=== PATIENT | female | born 1985 | race Caucasian/White ===

== ENCOUNTER → 2017-08-01 15:57 | Outpatient (CLI) | payer OTHER, SELFPAY ==
[2017-08-04 10:25] LABS: HCG BETA-SUBUNIT QUANT. < 1 mIU/mL (.)
[2017-08-04 10:27] LABS: EBV Early Antigen IgG <9.0 U/mL (0.0-8.9)
== END ==
PROVIDERS: Visit Provider Obstetrics & Gynecology
DX: R53.83 Other fatigue (principal); R11.0 Nausea
CPT/HCPCS: 36415; 84702; 86663; 86665

== ENCOUNTER 2017-08-09 17:46 | Emergency (ER) | payer OTHER, SELFPAY ==
[2017-08-09 17:48] VITALS: BP 102/63; PULSE 85; RESP 16; TEMP 37.2; O2SAT 98; BMI 27.5
--- NOTE | 2017-08-09 19:08 | CT_ITS ---
STUDY: CT ABDOMEN AND PELVIS WITH CONTRAST REASON FOR EXAM: Female, 31 years old. Groin and vaginal pain RADIATION DOSAGE (If Supplied By Facility): CTDIvol = ( 11.29 ) mGy, DLP = ( 650.96 ) mGycm TECHNIQUE: Transaxial images were obtained from the dome of the diaphragm to the symphysis pubis without oral contrast. 100 ml of Isovue 300 contrast was administered. Sagittal and coronal images were reconstructed. Individualized dose optimization techniques were used for this CT. COMPARISON: None. FINDINGS: The visualized lung bases are unremarkable. The visualized portions of the heart are within normal limits. Normal liver. Normal gallbladder and extrahepatic biliary system. Normal spleen. Normal pancreas. Normal bilateral adrenal glands. Normal right kidney. Normal left kidney. Normal visualized stomach. Normal small intestine. Normal colon. The appendix is visualized and appears normal. Normal abdominal aorta. Normal inferior vena cava. Normal retroperitoneum. Normal urinary bladder. Within the lower uterine segment/cervical region there is a ill-defined low-attenuation rounded focus. The uterus appears somewhat heterogenous. There is free fluid within the pelvis. Normal abdominal wall. Normal osseous structures. CT/Abdomen/Pelvis W IV Cont ONLY IMPRESSION: Ill-defined low-attenuation focus within the lower uterine segment/cervical region, cannot exclude an underlying neoplastic process. Recommend a pelvic ultrasound or MRI for further characterization. Electronically Signed: Mirella Houser MD at 20:52 EDT Tel , Service support ,
[2017-08-09 19:26] LABS: Color, Urine Yellow (Yellow); Glucose, Dipstick Normal (Normal); Ketone-Dipstick Negative (Negative); Leukocyte Esterase-Dipstick Negative /ul (Negative); Mucous, Urine 0 SEEN /hpf (<or=2+); Nitrite-Dipstick Negative (Negative); Occult Blood-Urine Negative /ul (Negative); Protein-Dipstick Negative (Negative); Red Blood Cells-Urine 0 SEEN /hpf (0-5); Urine Bilirubin Dipstick Negative (Negative); Urine Clarity Clear (Clear); Urine Urobilinogen Normal (Normal); White Blood Cells 0 SEEN /hpf (0-5)
[2017-08-09 19:29] LABS: Internal QC Validated? YES +Cl - CLEAR BKGD; Pregnancy, Urine Negative Negative
[2017-08-09 19:37] LABS: Absolute Lymphocyte Count 2.21 X10^3/ul (0.83-4.51); Absolute Neutrophil Count 4.9 X10^3/uL (2.0-7.7); Basophil# 0.03 X10^3/uL; Basophil% 0.4 % (0-1); Eosinophil# 0.19 X10^3/uL; Eosinophils% 2.4 % (0-5); Hematocrit 40.9 % (37-47); Hemoglobin 14.2 g/dl (12.0-15.0); Lymphocyte # 2.21 X10^3/ul (4.0); Lymphocyte % 28.1 % (19-41); Mean Corp Hgb Conc 34.7 g/gl (32-36); Mean Corpuscular Hgb 31.8 pg (27.0-32.0); Mean Corpuscular Volume 91.7 fL (81-99); Mean Platelet Vol. 10.6 fl (6.2-12.0); Monocyte# 0.55 X10^3/uL; Neutrophil # 4.87 X10^3/uL (2.7-7.7); Platelet Count 256 K/mm3 (150-450); RBC Distribution Width CV 13.1 % (11.6-14.6); RBC Distribution Width SD 43.4 fl (35.1-43.9); Red Blood Count 4.46 M/mm3 (4.2-5.4); White Blood Count 7.9 K/mm3 (4.4-11.0)
[2017-08-09 19:55] LABS: POSITIVE COUNT NO; POSITIVE DIFFERENTIAL NO; POSITIVE MORPHOLOGY NO
[2017-08-09 20:00] LABS: Bacteria RARE /hpf (None Seen); Squamous Epithelial Cells - UA 0-5 SEEN /hpf (5-10)
[2017-08-09 20:08] LABS: ALB/GLOB Ratio 1.2 RATIO (0.9-2.4); AST(SGOT) 14 U/L (15-37); Alanine Aminotransfer ALT/SGPT 35 U/L (13-56); Albumin, Serum 3.7 g/dL (3.2-5.0); Alkaline Phosphatase 59 U/L (45-117); Anion Gap 4 (5-15); BUN 5 mg/dL (7-18); BUN/Creat Ratio 7.7 RATIO (10-20); Calcium,Total 8.5 mg/dL (8.5-10.1); Chloride 109 mmol/L (98-107); Creatinine, Serum 0.65 mg/dL (0.55-1.02); EST Glomerular Filtration Rate 111 mL/min (>60); Est Glom Filt Rate - Afr Amer 135 mL/min (>60); Globulin 3.2 g/dL (2.2-4.2); Glucose 79 mg/dL (74-106); Lipase 79 U/L (73-393); Potassium 3.3 mmol/L (3.5-5.1); Protein, Total 6.9 g/dL (6.4-8.2); Sodium Level 142 mmol/L (136-145)
--- NOTE | 2017-08-09 20:36 | ED.DCSUM_ITS ---
- ER Visit Summary Date of Service: 08/09/17 Chief Complaint: Abdominal and pelvic pain History of Present Illness: The patient is a 31 F who states for the past 2 months she has had a abdominal pain that starts at her rib cage anteriorly and goes all the way down to her pelvis. She states now she has developed a burning sensation in the right and left inguinal region. She states that originally the abdominal pain was sharp and stabbing but worsened today. She saw an SCUBA DIVING TEACHER last week because she thought she might be but they are testing was negative. She thought she might be because she got nausea with caffeine and with tobacco use. She states that she had a Pap smear the results are not back. She thought perhaps she had pulled a muscle because 3 weeks ago she had a very sharp pain that lasted 15 minutes but has not had any of those symptoms since. She notes some weight gain. Her doctor practices out of town. Physical Examination: Afebrile vital signs are stable Gen: Well-nourished well-developed Head: Normocephalic atraumatic Eyes: Perrl EOMI ENT: TMs clear no rhinorrhea moist mucous membranes Neck: Supple no lymphadenopathy no JVD nontender CVS: Regular rate rhythm no murmurs normal S1-S2 Respiratory: No distress clear to auscultation bilaterally chest nontender Abdomen: Soft reports tenderness to palpation without guarding or rebound diffusely nondistended normal bowel sounds no masses Back: Nontender Extremity: Nontender no edema Skin: Normal color no rash Neuro: alert orientated ?3 CN II-XII intact normal strength sensation reflexes patient is observed ambulating down the hallway and walks normally cerebellar Psych: Normal affect normal mood Test Results: CBC CMP urine and test negative. CT of the abdomen pelvis showed a prominence lower uterine segment and possible fluid. A ultrasound was recommended and this was obtained. Please see details from radiology. Emergency Department Course and Treatment: Patient will be referred back to her apartment assistant manager for review of the ultrasound. As far as the diffuse abdominal pain for 2 months I do not have a clear etiology for it but I do not see any emergent cause for it. Patient has upcoming follow-up appointment with her family doctor. Impression: 1. Abdominal pain 2. Pelvic pain This note was generated with Xfire dictation software. It may contain incorrect words, spelling, and punctuation that were not noted in review of the chart prior to signing ED Disposition - Plan for ED Patient: Disposition: Home or Assisted Living Chief Complaint: Female C/O Instructions: ED Abdominal Pain Unkn Cause, ED Pelvic Pain [facility] Referrals: Yanelis Mckinney MD [STAFF PHYSICIAN] - (call on saturday to arrange follow up)
--- NOTE | 2017-08-09 21:03 | US_ITS ---
STUDY: ULTRASOUND TRANSVAGINAL CLINICAL: Female, [address] Pelvic pain. TECHNIQUE: Transvaginal COMPARISON: CT dated August 09, 2017 FINDINGS: Normal uterine size measuring 7.0 cm in maximal craniocaudal dimension. There are no myometrial masses. Normal endometrial thickness measuring 8 mm. There are no endometrial masses, and there is no fluid in the endometrial cavity. There is fluid within the cervix. There appears to be soft tissue prominence of the cervix. Normal right ovary, measuring 3.5 x 2.4 x 1.9 cm. There are multiple follicles without a dominant cyst. Normal left ovary, measuring 3.4 x 2.5 x 2.0 cm. There are multiple follicles without a dominant cyst. There is mild free fluid in the pelvis. Polycystic ovary disease: No. US/Transvaginal Non- IMPRESSION: Fluid within the cervix with apparent soft tissue prominence of the cervix. No discrete mass identified. Electronically Signed: Mirella Houser MD at 22:17 EDT Tel , Service support ,
[2017-08-09 23:52] VITALS: RESP 16
== END 2017-08-09 23:53 | disposition home or self-care (01) ==
PROVIDERS: Emergency Provider Emergency Medicine; Family Provider Family Medicine; PCP Family Medicine
DX: R10.84 Generalized abdominal pain (principal); R10.2 Pelvic and perineal pain; R11.0 Nausea; Z72.0 Tobacco use
CPT/HCPCS: 74177; 76830; 80053; 81001; 81025; 83690; 85025; 93976; 99284; Q9967; A4216

== ENCOUNTER → 2017-09-30 12:12 | Outpatient (CLI) | payer OTHER, SELFPAY | LOC: OPUS 12:12 | PROVIDERS: Family Provider Family Medicine; PCP Family Medicine; Visit Provider Obstetrics & Gynecology | DX: Z34.81 Encounter for supervision of other normal pregnancy, first trimester (principal); Z32.01 Encounter for pregnancy test, result positive | CPT/HCPCS: 76817 ==

== ENCOUNTER → 2017-10-28 12:09 | Outpatient (CLI) | payer OTHER, SELFPAY ==
[2017-09-19 15:46] LABS: Hematocrit 39.8 % (37-47); Hemoglobin 13.6 g/dl (12.0-15.0); Mean Corp Hgb Conc 34.2 g/gl (32-36); Mean Corpuscular Volume 90.7 fL (81-99); Mean Platelet Vol. 10.4 fl (6.2-12.0); Platelet Count 248 K/mm3 (150-450); RBC Distribution Width CV 12.9 % (11.6-14.6); RBC Distribution Width SD 42.3 fl (35.1-43.9); Red Blood Count 4.39 M/mm3 (4.2-5.4); White Blood Count 9.8 K/mm3 (4.4-11.0)
[2017-09-19 15:48] LABS: International Normalized Ratio 1.1
[2017-09-19 15:49] LABS: Partial Thromboplast Time 30.3 Seconds (24.1-36.2); Scan Indicated on CBC? Y/N NO
[2017-09-26 08:44] VITALS: BP 110/69; PULSE 93; RESP 16; TEMP 37.2; O2SAT 99; BMI 27.6
[2017-09-26 08:58] LABS: Internal QC Validated? YES +Cl - CLEAR BKGD
[2017-09-26 08:59] LABS: Pregnancy, Urine Positive Negative
[2017-09-27 11:36] LABS: HCG BETA-SUBUNIT QUANT. 31653 mIU/mL (.)
== END ==
LOC: SDC 12:10
PROVIDERS: Anesthesiology; Family Provider Family Medicine; PCP Family Medicine; Visit Provider Obstetrics & Gynecology
PROC: 0UDB8ZZ Extraction of Endometrium, Via Natural or Artificial Opening Endoscopic (ICD-10-PCS; CPT 58558; principal; 2017-09-26 09:30)
PROC: (CPT 49320; 2017-09-26 09:30)
DX: Z01.818 Encounter for other preprocedural examination (principal)
CPT/HCPCS: 36415; 81025; 84702; 85027; 85610; 85730; 86850; 86900; J7120; J2405

== ENCOUNTER 2018-07-08 23:45 | Emergency (ER) | payer OTHER, SELFPAY ==
[2018-07-08 23:45] VITALS: BP 126/77; PULSE 105; RESP 20; TEMP 36; O2SAT 100; BMI 27.1
--- NOTE | 2018-07-09 00:12 | ED.DCSUM_ITS ---
History of Present Illness Chief Complaint: Laceration Informant: Patient Occurred: Today - JPTA Mechanism/Context: Incised - accidentally Context: Sudden Onset Timing: Continuous Quality of Pain: - - sore Location: left forearm Current Severity: Mild Maximum Severity: Moderate Worsened by: palpation Relieved by: leaving it alone Associated Symptoms: Negative for: Parasthesia, Weakness, Loss of Funtion Narrative: Patient states this is not a self-inflicted wound, it was an accident as she was gathering some knives to put them away. Somehow one cut her in the left forearm. She states she is under a tremendous amount of stress involving work, finances, boyfriend, and taking care of her dad, but states she is not suicidal. Tetanus Immunization: >10 years Past Medical History - Allergies and Home Meds Allergies/Adverse Reactions: Allergies No Known Allergies Allergy (Verified 08/09/17 17:50) Primary Care Physician: Yun Gayle NP-C [Primary Care Provider] - Past Medical History: None Smoking Status: Current every day smoker Review of Systems Musculoskeletal: Reports: Extremity Pain Skin: Reports: Wounds. Denies: Abscess Neurological: Denies: Weakness, Parasthesia, Numbness Psych: Denies: Depression, Suicidal thoughts, Suicidal ideations Physical Exam Vital Signs/Narrative: Vital Signs Temp Pulse Resp BP Pulse Ox 07/08/18 23:45 96.8 F L 105 H 20 H 126/77 H 100 Inital Vital Signs reviewed: Yes Left Forearm: - - 5 cm laceration into subcutaneous fat without any major bleeding, tendon, blood vessel, nerve, or bone exposure. Negative for: Limited ROM - Full range of motion throughout the wrist and fingers left upper extremity, median, ulnar, radial nerve function all intact. General: Well nourished, Well developed Head: Normocephalic, Atraumatic Skin: Trauma - Laceration. See above. Left forearm. No other injuries. Neurological: Alert, Oriented x3, Cranial nerves II-XII grossly intact, Normal Strength, Normal Sensation, Normal Gait Psychological: Normal affect Diagnostic/Tx/Re-eval - Medical Decision Making Tetanus was updated with an Adacel. Advised with regards to suture removal in approximately 10-14 days. Procedures - Lacerations left forearm Length: 5 cm Depth: Sub Q Shape: Linear Prep: Sterile Conditions, Chlorhexadine Laceration Repair: Lidocaine - 1% plain, 8cc Irrigated (ml): 100 Number of Sutures/Anay: 5 Suture Information: Ethilon, Horizontal, Mattress, 4-0 Comment: tolerated well. no complications. ED Disposition - Plan for ED Patient: Disposition: Home or Assisted Living Diagnosis: Laceration of left forearm without complication Instructions: ED Laceration Ext Sutr Stap Tape Referrals: Yun Gayle STUDENT SUCCESS ADVISOR-C [Primary Care Provider] - 10-14 Days suture removal
[2018-07-09] MEDS: Diphth,Pertuss(Acell),Tet Vac 0.5 ML Vial IM (00:26)
== END 2018-07-09 01:01 | disposition home or self-care (01) ==
PROVIDERS: Emergency Provider Emergency Medicine; Family Provider Nurse Practitioner Family; PCP Nurse Practitioner Family
DX: S51.812A Laceration without foreign body of left forearm, initial encounter (principal); W26.0XXA Contact with knife, initial encounter; Y93.9 Activity, unspecified; Y92.9 Unspecified place or not applicable; Y99.9 Unspecified external cause status; Z23 Encounter for immunization; F17.200 Nicotine dependence, unspecified, uncomplicated
CPT/HCPCS: 12002; 90715; 99284

== ENCOUNTER 2018-07-17 20:28 | Emergency (ER) | payer OTHER, SELFPAY ==
[2018-07-17 20:28] VITALS: BP 114/72; PULSE 99; RESP 16; TEMP 36.2; O2SAT 99; BMI 26.5
[2018-07-17 20:44] LABS: Mucous, Urine 0 SEEN /hpf (<or=2+)
[2018-07-17 20:49] LABS: Color, Urine Amber (Yellow); Glucose, Dipstick Normal (Normal); Ketone-Dipstick 5 mg/dl (Negative); Leukocyte Esterase-Dipstick 500 /ul (Negative); Nitrite-Dipstick Positive (Negative); Occult Blood-Urine 250 /ul (Negative); Protein-Dipstick 100 mg/dl (Negative); Urine Bilirubin Dipstick 1 mg/dL (Negative); Urine Clarity Cloudy (Clear); Urine Urobilinogen 4 mg/dl (Normal); Urine pH 6.5 (5.0 - 8.0)
[2018-07-17 20:58] LABS: Red Blood Cells-Urine > 100 SEEN /hpf (0-5); Squamous Epithelial Cells - UA 5-10 SEEN /hpf (5-10); White Blood Cells >100 SEEN /hpf (0-5)
[2018-07-17 20:59] LABS: Bacteria 3+ /hpf (None Seen)
--- NOTE | 2018-07-17 21:32 | ED.VIS.GEN ---
History of Present Illness Chief Complaint: Complaint Informant: Patient Onset: Today Context: Sudden Onset Timing: Continuous - 1 hour prior to presentation. Burning with urgency and frequency Quality: Burning Location: Current Severity: Mild Maximum Severity: Moderate Worsened by: Urinary Relieved by: Not applicable Associated Symptoms: No associated symptoms Narrative: Patient is a 32-year-old woman whose last normal menstrual period was 10 days ago who presents with dysuria, frequency, urgency that started 1 hour prior to presentation. She denies fever or chills. She does, nausea without vomiting. She denies vaginal symptoms. She denies anabolic allergies. Prior similar symptoms: No Recent Illness/Hospitalization: No - Past Medical History (1) No significant past medical history Status: Acute Past Medical History - Allergies and Home Meds Allergies/Adverse Reactions: Allergies No Known Allergies Allergy (Verified 07/17/18 20:30) Primary Care Physician: Yun Gayle NP-C [Primary Care Provider] - Prior records reviewed: No Past Medical History: None Surgical History: no surgical history Lives: Spouse/ Significant Other Smoking Status: Current every day smoker Alcohol: Rare Review of Systems General: Denies: Chills, Fever, Malaise, Subjective, Sweats Gastrointestinal: Reports: Abdominal pain, Nausea. Denies: Vomiting, Diarrhea, Constipation, Melena, Hematochezia Genitourinary: Reports: Dysuria, Frequency. Denies: Hematuria Musculoskeletal: Reports: Back pain - Central low back. Denies: Myalgias, Arthralgias, Neck pain, Swelling, Extremity Pain Skin: Denies: Rash Allergy: Denies: Uticaria, Swelling of the mouth Physical Exam Vital Signs/Narrative: Vital Signs Temp Pulse Resp BP Pulse Ox 07/17/18 20:28 97.2 F L 99 16 114/72 99 Inital Vital Signs reviewed: Yes General: Well nourished, Well developed, No Acute Distress Head: Normocephalic, Atraumatic Eyes: Perrl, EOMI. Negative for: Pale conjunctiva, Scleral icterus, - ENT: Moist mucous membranes, No rhinorrhea Neck: Supple, Nontender Cardiovascular: Regular rate, Regular rhythm, No murmurs Respiratory: No distress Abdomen: Soft, Nondistended, Normal bowel sounds, No masses, Tender - Tenderness suprapubic. Negative for: Guarding, Rebound tenderness Rectal: Deferred Back: Nontender, Normal Inspection. Negative for: CVA tenderness Skin: Normal color, No rash Neurological: Alert, Oriented x3, Cranial nerves II-XII grossly intact, Normal Strength, Normal Sensation Psychological: Normal affect, Normal Mood Diagnostic/Tx/Re-eval - Medical Decision Making Symptoms consistent with cystitis. Pyelonephritis. Doubt gynecologic etiology. ED Disposition - Plan for ED Patient: Disposition: Home or Assisted Living Diagnosis: Acute cystitis Instructions: ED UTI Cystitis Female Prescriptions: Nitrofurantoin Macrocrystals [Macrobid] 100 mg PO Q12 #10 capsule Phenazopyridine HCl [Pyridium] 200 mg PO TID #10 tablet Referrals: Yun Gayle NP-C [Primary Care Provider] - 3-5 Days Additional Instructions: Your prescription was electronically transmitted to [facility] [place]
[2018-07-17] MEDS: Nitrofurantoin Macrocrystals 100 MG Capsule PO (21:55)
[2018-07-17] MEDS: Phenazopyridine 95 MG Tablet 190 MG PO (21:55)
[2018-07-17 21:57] VITALS: RESP 16
== END 2018-07-17 21:59 | disposition home or self-care (01) ==
PROVIDERS: Emergency Provider Emergency Medicine; Family Provider Nurse Practitioner Family; PCP Nurse Practitioner Family
DX: N30.00 Acute cystitis without hematuria (principal); F17.200 Nicotine dependence, unspecified, uncomplicated; Z79.899 Other long term (current) drug therapy
CPT/HCPCS: 81001; 87077; 87086; 87088; 87186; 99283

== ENCOUNTER 2019-01-04 09:21 | Emergency (ER) | payer MEDICAID, SELFPAY ==
[2019-01-04 09:22] VITALS: BP 127/71; PULSE 117; RESP 16; TEMP 37; O2SAT 100; BMI 28.6
--- NOTE | 2019-01-04 09:45 | ED.DCSUM_ITS ---
History of Present Illness Chief Complaint: Complaint Detail of Chief Complaint: Rash and infection in the perineal region Informant: Patient Onset: Weeks Current Severity: Moderate Maximum Severity: Moderate Narrative: Patient presents with what she believes is an allergic reaction that is turned into an infection. Approximately 1 week ago she stated she started breaking out in her perineal region. She had recently shaved and started using a new detergent. She states she started using some Neosporin to the area. This was helping for a while but now seems to be worsened again. She states that she did have a few lumps that had drained some bloody fluid. She has not noted fever. She is not had vaginal discharge or dysuria. - Past Medical History (1) Asthma Status: Chronic (2) GERD (gastroesophageal reflux disease) Status: Chronic Past Medical History - Allergies and Home Meds Allergies/Adverse Reactions: Allergies No Known Allergies Allergy (Verified 01/04/19 09:24) Primary Care Physician: Jackie Obregon [STAFF PHYSICIAN] - 1 Week if not improving Surgical History: no surgical history Smoking Status: Current every day smoker Review of Systems General: Denies: Chills, Fever Eyes: Denies: Visual changes - bilaterally ENT: Denies: Bilateral ear pain Cardiovascular: Denies: Chest pain Respiratory: Denies: Dyspnea, Cough Gastrointestinal: Denies: Abdominal pain, Nausea, Vomiting, Diarrhea Genitourinary: Denies: Dysuria Skin: Reports: Wounds Endocrine: Denies: Polyuria, Polydipsia Allergy: Denies: Uticaria Physical Exam Vital Signs/Narrative: Vital Signs Temp Pulse Resp BP Pulse Ox 01/04/19 09:22 98.6 F 117 H 16 127/71 H 100 Inital Vital Signs reviewed: Yes General: Well nourished, Well developed Head: Normocephalic ENT: Moist mucous membranes Neck: Supple Cardiovascular: Regular rate, Regular rhythm Respiratory: No distress, CTA bilaterally Abdomen: Soft, Nontender : - - Patient has generalized erythema and mild edema over the labia. There are a few scabbed lesions from recently drained abscesses. She has erythema over the proximal medial thighs with satellite lesions consistent with yeast infection. There is no vaginal discharge. There are no vesicles or skin changes concerning for herpes infection. Extremities: Nontender Neurological: Alert, Oriented x3 Psychological: Normal affect Diagnostic/Tx/Re-eval - Medical Decision Making I discussed with the patient that she may have developed an allergic reaction in itially, but she had some skin breakdown and now has sign of secondary bacterial infection as well as Marilu. She will be treated with a course of doxycycline. She is given a dose of Diflucan now and then given a prescription for 1 tab to take at the completion of her antibiotic course. ED Disposition - Plan for ED Patient: Disposition: Home or Assisted Living Diagnosis: Infection of wound of perineum Instructions: Vaginal Infection: Yeast (Candidiasis), Cellulitis Prescriptions: Fluconazole [Diflucan] 150 mg PO X1 #1 tab Prescription Printed Doxycycline 100 mg PO BID #20 cap Prescription Printed Naproxen [Naprosyn] 500 mg PO BID PRN PRN #20 tab PRN Reason: Pain Score 1-10/10 Prescription Printed Referrals: Jackie Obregon [STAFF PHYSICIAN] - 1 Week if not improving
[2019-01-04] MEDS: Doxycycline 100 MG CAPSULE PO (10:20)
[2019-01-04] MEDS: Fluconazole 100 MG Tablet 200 MG PO (10:20)
== END 2019-01-04 10:31 | disposition home or self-care (01) ==
PROVIDERS: Emergency Provider Emergency Medicine; Family Provider Nurse Practitioner Family; PCP Nurse Practitioner Family
DX: B37.3 Candidiasis of vulva and vagina (principal); S31.502A Unspecified open wound of unspecified external genital organs, female, initial encounter; L08.9 Local infection of the skin and subcutaneous tissue, unspecified; X58.XXXA Exposure to other specified factors, initial encounter; Y93.9 Activity, unspecified; Y92.9 Unspecified place or not applicable; Y99.9 Unspecified external cause status; J45.909 Unspecified asthma, uncomplicated; K21.9 Gastro-esophageal reflux disease without esophagitis; F17.200 Nicotine dependence, unspecified, uncomplicated
CPT/HCPCS: 99283

== ENCOUNTER → 2019-07-09 11:01 | Outpatient (CLI) | payer MEDICAID, SELFPAY ==
[2019-07-09 12:28] LABS: Absolute Lymphocyte Count 2.26 X10^3/uL (0.83-4.51); Absolute Neutrophil Count 5.2 X10^3/uL (2.0-7.7); Basophil# 0.04 X10^3/uL; Basophil% 0.5 % (0-1); Eosinophil# 0.14 X10^3/uL; Eosinophils% 1.7 % (0-5); Hematocrit 42.9 % (37-47); Lymphocyte # 2.26 X10^3/ul (4.0); Lymphocyte % 27.2 % (19-41); Mean Corp Hgb Conc 32.6 g/dL (32-36); Mean Corpuscular Hgb 29.9 pg (27.0-32.0); Mean Corpuscular Volume 91.5 fL (81-99); Mean Platelet Vol. 10.9 fl (6.2-12.0); Monocyte# 0.63 X10^3/uL; Monocyte% 7.6 % (0-10); NRBC Flagged by Analyzer 0 % (0-5); Neutrophil # 5.22 X10^3/uL (2.7-7.7); Neutrophil % 62.6 % (47-70); Platelet Count 265 K/mm3 (150-450); RBC Distribution Width CV 13.3 % (11.6-14.6); RBC Distribution Width SD 44.6 fl (35.1-43.9); Red Blood Count 4.69 M/mm3 (4.2-5.4); White Blood Count 8.3 K/mm3 (4.4-11.0)
[2019-07-09 12:36] LABS: ALB/GLOB Ratio 1.1 RATIO (0.9-2.4); AST(SGOT) 14 U/L (15-37); Alanine Aminotransfer ALT/SGPT 25 U/L (13-56); Albumin, Serum 3.9 g/dL (3.2-5.0); Alkaline Phosphatase 69 U/L (45-117); Anion Gap 6 (5-15); BUN 8 mg/dL (7-18); BUN/Creat Ratio 12.1 RATIO (10-20); Bilirubin, Direct 0.11 mg/dL (0.00-0.30); Chloride 103 mmol/L (98-107); Creatinine, Serum 0.66 mg/dL (0.55-1.02); EST Glomerular Filtration Rate 108 mL/min (>60); Est Glom Filt Rate - Afr Amer 131 mL/min (>60); Globulin 3.6 g/dL (2.2-4.2); Glucose 88 mg/dL (74-106); Protein, Total 7.5 g/dL (6.4-8.2); Sodium Level 136 mmol/L (136-145)
[2019-07-12 03:06] LABS: QNTFERON TB Mitogen Value > 10.00 IU/mL (.); QNTFERON TB Nil Value 0.01 IU/mL (.); QNTFERON TB1+ Ag Value 0.01 IU/mL (.); QNTFERON TB2+ Ag Value 0.01 IU/mL (.)
[2019-07-12 03:38] LABS: QNTIFERON TB Positive Criteria Negative (Negative)
== END ==
PROVIDERS: PCP Nurse Practitioner Family; Referring Provider Dermatology; Visit Provider Dermatology
DX: L40.0 Psoriasis vulgaris (principal)
CPT/HCPCS: 36415; 80053; 82248; 85025; 86480

== ENCOUNTER 2020-07-02 07:05 | Inpatient (IN) | payer MEDICAID, SELFPAY ==
[2020-07-02] VITALS (67 sets, daily range): BP systolic 113–136; BP diastolic 60–87; PULSE 78–197; TEMP 35.9–37.3; O2SAT 82–100; BMI 41.5
[2020-07-02 08:00] LABS: Absolute Lymphocyte Count 2.23 X10^3/uL (0.83-4.51); Absolute Neutrophil Count 8.6 X10^3/uL (2.0-7.7); Basophil# 0.04 X10^3/uL; Basophil% 0.3 % (0-1); Eosinophil# 0.15 X10^3/uL; Eosinophils% 1.2 % (0-5); Hemoglobin 12.5 g/dL (12.0-15.0); Lymphocyte # 2.23 X10^3/ul (0.83-4.51); Lymphocyte % 18.2 % (19-41); Mean Corp Hgb Conc 33.8 g/dL (32-36); Mean Corpuscular Hgb 31.1 pg (27.0-32.0); Mean Platelet Vol. 10.6 fl (6.2-12.0); Monocyte# 1.08 X10^3/uL; Monocyte% 8.8 % (0-10); NRBC Flagged by Analyzer 0 % (0-5); Neutrophil # 8.61 X10^3/uL (2.7-7.7); Neutrophil % 70.4 % (47-70); Platelet Count 283 K/mm3 (150-450); RBC Distribution Width CV 12.8 % (11.6-14.6); Red Blood Count 4.02 M/mm3 (4.2-5.4); White Blood Count 12.2 K/mm3 (4.4-11.0)
--- NOTE | 2020-07-02 08:39 | HP.PCM.OB_ITS ---
HPI - General General Date of Admission: 07/02/20 HPI Narrative RASHAWN GOODMAN, 34-year-old 7 para 0 presents at 39-2/7 weeks with EDC of 07/07/2020 confirmed by ultrasound presents for induction of labor. is complicated to date by tobacco use, maternal obesity, advanced maternal age. She also has a history of drug use in the past including cannabis products and crystal methamphetamines. Patient denies any methamphetamine since she found out she was . [facility] Home Medications albuterol sulfate 2 inhaler INHALATION PRN PRN 01/04/19 [History Last Taken Unknown] prenat.vits,samuel,[id number] [ Vitamin] 1 tab PO DAILY 07/02/20 [History Last Taken 07/01/20 08:00] Allergy/AdvReac Type Severity Reaction Status Date / Time No Known Allergies Allergy Verified 01/04/19 09:24 Social History Smoking Status: Light Smoker (<10/day) History Elective abortions Hx Para 0 Spontaneous abortions Hx # Term Pregnancies Ectopic pregnancies Hx # Pregnancies Multiple births # of living children ROS Constitutional Constitutional: Denies fatigue, fever(s) or malaise Eyes Eyes: Denies change in vision ENT HEENT: Denies dizziness or headache(s) Cardiovascular Cardiovascular: Denies chest pain, dyspnea or lightheadedness Respiratory/Chest Respiratory/Chest: Denies cough or dyspnea Gastrointestinal Gastrointestinal: Denies change in bowel habits Genitourinary Genitourinary: Denies burning urination or genital lesions Integumentary Integumentary: Denies rash Neurologic Neurologic: Denies confusion, dizziness, headache(s), numbness or weakness Vital Signs Vital Signs Vital Signs: 07/02/20 07:37 Temperature 98.8 F Temperature Source Temporal Pulse Rate 101 H Blood Pressure 116/73 BP Systolic 116 BP Diastolic 73 Pulse Ox 98 Physical Exam Const alert and no apparent distress General Appearance: cooperative HEENT normocephalic Resp normal respiratory effort Cardio regular rate GI soft to palpation GI Narrative: gravid, nontender, appropriate for gestational age Extremity no calf tenderness General Extremity: edema Skin no wounds Rashes: No rashes noted Psych activity/motor behavior normal Assessment & Plan (1) Advanced maternal age during in third trimester: (2) Encounter for induction of labor: PLAN: Risk benefits alternatives and personnel involved with Cytotec cervical ripening, possible Medrano, PIP and AROM induction of labor were discussed with patient, questions were answered to her satisfaction she desires to proceed. Estimated weight is less than 4500 g clinically and pelvis clinically adequate to expect vaginal delivery. This is a medical induction of labor due to risk factors of obesity, nulliparity, and advanced maternal age. Will get tox screen upon admission. May use routine pain control measures as needed. Will need group B strep prophylaxis when in labor. (3) Tobacco use disorder affecting in third trimester, antepartum: (4) Maternal obesity syndrome in third trimester: (5) Body mass index (BMI) of 40.1 to 44.9 in adult: (6) Cannabis use disorder, mild, abuse:
[2020-07-02] MEDS: 0.9% Saline Lock 10 ML Syringe IV ×2 (08:42→13:12)
[2020-07-02] MEDS: miSOPROStol 25 MCG TABLET VAGINAL ×2 (08:42→13:03)
[2020-07-02 08:59] LABS: Amphetamine Urine VISTA NEGATIVE (<1000 ng/mL); Barbiturate Urine VISTA NEGATIVE (< 200 ng/mL); Benzodiazepine Urine VISTA NEGATIVE (< 200 ng/mL); Cocaine Urine VISTA NEGATIVE (< 300 ng/mL); Ecstacy Urine VISTA NEGATIVE (< 500 ng/mL); Methadone Urine VISTA NEGATIVE (< 300 ng/mL); PCP Urine VISTA NEGATIVE (< 25 ng/mL); THC Urine VISTA NEGATIVE (< 50 ng/mL); Vista UDS pH Range 7
[2020-07-02] MEDS: Lactated Ringers 1,000 ML 50 ML IV (13:13)
[2020-07-02] MEDS: 0.9% Normal Saline Single 100 ML IV.SOLN. INTRA-UTER (14:00)
[2020-07-02] MEDS: Oxytocin 30 units/NS 500 ml 30 UNITS/500 ML IV.SOLN IV (17:30)
[2020-07-02] MEDS: Lactated Ringers 500 ML 999 ML IV ×2 (18:53→22:38)
[2020-07-02] MEDS: fentaNYL-bupivacaine (epidural) 100 ML BAG EPIDURAL (20:11)
[2020-07-03] VITALS (60 sets, daily range): BP systolic 90–132; BP diastolic 50–80; PULSE 78–104; RESP 14–16; TEMP 36.2–37.2; O2SAT 93–100
[2020-07-03] MEDS: fentaNYL-bupivacaine (epidural) 100 ML BAG EPIDURAL (00:34)
[2020-07-03] MEDS: DiphenhydrAMINE 50 MG/ML Syringe 25 MG IV (02:24)
[2020-07-03] MEDS: Lactated Ringers 1,000 ML 200 ML IV (03:59)
[2020-07-03] MEDS: Lactated Ringers 500 ML 999 ML IV (04:43)
[2020-07-03] MEDS: Cefazolin 2 GM in 0.9% Normal Saline 100 ML IV (06:04)
[2020-07-03] MEDS: Ondansetron 4 MG/2 ML Vial IV (06:40)
--- NOTE | 2020-07-03 07:12 | OP.PCM_ITS ---
Assessment & Plan (1) deliv NOS-unsp: (2) Arrest of descent, delivered, current hospitalization: (3) Single live : Maternal Data Information Final YUNG: 06/28/20 Gestational age: 39 3/7 Details Operative Information Date of Procedure: 07/03/20 Pre-Operative Diagnosis: arrest of descent Post-Operative Diagnosis: same Classification: KHADIJAH Procedure Type: low transverse tester electronic scale #1: Dick Thomas Type of Anesthesia: Epidural Anesthesiologist: Jarrod Mendoza Special Medications: duramorph Antibiotic Given: Ancef 2 grams IV x1 and Zithromax 500 mg/5 mL X1 Drain: Medrano to straight drain Estimated Blood Loss: 800 Fluids Replaced: 1000 Findings Description of Procedure: The patient was 8 cm for over 6 hours. Contractions were inadequate despite Pitocin. However, cervix was swollen, there had been no significant change and active portion of labor had been prolonged even before this. Risk benefits alternatives to section were discussed and the patient desired to proceed. The patient was taken to the operating room. She was prepped and draped in the dorsal supine position with a leftward tilt. A Pfannenstiel skin incision was made approximately 2 cm above the symphysis pubis and carried through to underlying layer fascia with the scalpel. The fascia was incised incised in the midline and extended laterally with the Messina scissors. The fascia was dissected off the rectus muscles with blunt and sharp dissection. The rectus muscles were in the midline and the peritoneum was entered bluntly. The peritoneal incision was stretched and the bladder blade was placed. The uterine incision was made in a low transverse fashion with the scalpel and extended superiorly and inferiorly with blunt dissection. The amniotic membranes were ruptured bluntly and clear amniotic fluid returned. The 's head was brought to the incision in the flexed position and delivered without difficulty. The remainder of the infant was delivered with gentle traction and fundal pressure in the standard fashion. The mouth and nares were bulb suctioned. The cord was clamped and cut as the was stimulated. Cord clamping was delayed. The was handed off to the waiting nursing staff. The placenta was delivered with fundal massage and gentle traction in the standard fashion. The uterus was exteriorized and cleared of all clots and debris. The uterine incision was closed with #1 Vicryl in a running locked fashion. A second layer of the same suture was used in an imbricating fashion. The incision was examined and was found to be hemostatic. The uterus was placed back into the peritoneal cavity and hemostasis was again confirmed. The rectus muscles were examined and any bleeding was Bovie cauterized. The parietal peritoneum and rectus muscles were closed en bloc with an 0 Vicryl running suture. The surgical teams outer gloves were then changed. The rectus fascia was examined and any bleeding was Bovie cauterized and the rectus fascia was closed with 0 PDS suture in a running standard fashion. The subcutaneous tissue was examining and any bleeding was Bovie cauterized. The subcutaneous tissue was reapproximated with 3-0 Vicryl suture. The skin was closed in a subcuticular fashion by the PHOTOGRAPH TINTER with me present in the labor and delivery suite. I performed the remainder of the procedure with assistance. All sponge, lap, and needle counts were correct. The patient was taken to her room for recovery in a stable condition. Start time: 6:22 AM Stop time 6:57 AM Delivery time: 6:26 AM Presentation: Positive for Vertex Amniotic Membrane Rupture Type: Artificial Amniotic Fluid Description: Clear Placental Delivery Description: Spontaneous Cord Vessel Description: 3 Vessels Cord Entanglement: None A Gender: Male (Jim) (1 minute): 8 (5 minute): 9 Delayed Cord Clamping: Yes Complications Complications: none Admit VTE Documentation VTE Present on Admission: No VTE Mechan Device Prophylaxis: SCD's VTE Pharm Prophylaxis Ordered: Yes
[2020-07-03] MEDS: Oxytocin 30 units/NS 500 ml 30 UNITS/500 ML IV.SOLN 167 UNITS IV (07:22)
[2020-07-03] MEDS: Ketorolac 30 MG/ML Syringe IV ×3 (07:33→20:54)
[2020-07-03] MEDS: Methylergonovine 0.2 MG/ML Ampul IM (07:37)
[2020-07-03] MEDS: Acetaminophen 500 MG Tablet 1000 MG PO ×3 (08:26→20:54)
[2020-07-03] MEDS: Loratadine 10 MG Tablet PO (10:08)
[2020-07-03] MEDS: Lactated Ringers 1,000 ML 100 ML IV (10:26)
[2020-07-03] MEDS: 0.9% Saline Lock 10 ML Syringe IV ×2 (14:04→20:55)
--- NOTE | 2020-07-03 14:44 | NURSING ---
epidural catheter removed by this RN at 1300. Blue tip intact, patient tolerated well .
[2020-07-03] MEDS: Enoxaparin 40 MG/0.4 ML Syringe SC (18:36)
[2020-07-04 00:57] VITALS: BP 99/56; PULSE 92; RESP 16; O2SAT 96
[2020-07-04 02:47] VITALS: PULSE 91; RESP 18; O2SAT 99
[2020-07-04] MEDS: Acetaminophen 500 MG Tablet 1000 MG PO ×4 (02:48→21:05)
[2020-07-04] MEDS: Ketorolac 30 MG/ML Syringe IV (02:49)
[2020-07-04] MEDS: 0.9% Saline Lock 10 ML Syringe IV (02:49)
[2020-07-04 04:56] VITALS: BP 109/48; PULSE 90; RESP 18; O2SAT 96
[2020-07-04 05:11] LABS: Hemoglobin 10.4 g/dL (12.0-15.0); Mean Corp Hgb Conc 33.5 g/dL (32-36); Mean Corpuscular Hgb 31.1 pg (27.0-32.0); Mean Corpuscular Volume 92.8 fL (81-99); Mean Platelet Vol. 10.3 fl (6.2-12.0); Platelet Count 235 K/mm3 (150-450); RBC Distribution Width CV 12.9 % (11.6-14.6); Red Blood Count 3.34 M/mm3 (4.2-5.4)
--- NOTE | 2020-07-04 05:28 | CPS ---
I.S taught by CLOTILDE
[2020-07-04 06:25] VITALS: PULSE 101; RESP 16; O2SAT 97
[2020-07-04] MEDS: Enoxaparin 40 MG/0.4 ML Syringe SC ×2 (06:27→19:26)
--- NOTE | 2020-07-04 08:33 | PCM.PROGNOTE ---
Subjective Subjective Doing well per patient and nursing staff. Ambulating and taking PO without difficulty. Voiding and passing flatus. Pain controlled. , services for assistance. Denies headache, visual changes, chest pain, shortness of breath, leg pain or increased bleeding. Lochia normal. Objective Data Objective Data Vital Signs: Vital Signs Temp Pulse Resp BP Pulse Ox 98 F 101 H 16 109/48 L 97 07/03/20 20:42 07/04/20 06:25 07/04/20 06:25 07/04/20 04:56 07/04/20 06:25 Oxygen Delivery Method Room Air Weight: 234 lb 9.6 oz Body Mass Index (BMI) 41.5 Intake & Output: Intake and Output for Last 24 Hours 07/02/20 07/03/20 07/04/20 23:59 23:59 23:59 Intake Total 3870.00 / 3870.00 2164.24 / 2164.24 Output Total 875 / 875 3700 / 3700 Balance 2995.00 / 2995.00 -1535.76 / -1535.76 Lab / Micro Data Result Diagrams: 07/04/20 05:00 Labs: Laboratory Results - last 24 hr 07/03/20 07/04/20 08:50 05:00 WBC 18.0 H RBC 3.34 L Hgb 10.4 L Hct 31.0 L MCV 92.8 MCH 31.1 MCHC 33.5 RDW Std Deviation 44.0 H RDW Coeff of Jyothi 12.9 Plt Count 235 MPV 10.3 Screen NEGATIVE Baby's Blood Type A POSITIVE Baby's FRANKO NEGATIVE Micro: Microbiology 07/02/20 07:35 Interface Orders SARS-CoV-2 Antigen (Rapid) - Final Physical Exam Const alert and oriented x3 General Appearance: cooperative Orientation / Consciousness: awake, oriented to person, oriented to place and oriented to time Exam Limitations: no limitations HEENT normocephalic Head and Scalp: normal to inspection, normocephalic and atraumatic Face and Sinus: normal facial exam Eyes General Eye: normal appearance of both eyes Neck full ROM Chest Chest: symmetrical chest wall rise Resp normal respiratory effort and normal air movement Auscultation: clear to auscultation bilaterally Cardio regular rate, regular rhythm, S1 normal heart sound, S2 normal heart sound, no murmurs, no rub, no gallops and no clicks GI normal to inspection, nondistended, normoactive bowel sounds and non-tender GI Narrative: Fundus firm 2 below U. Dressing clean, dry and intact Auscultation: normoactive bowel sounds appearance of the vagina normal Bladder / Kidney Exam: no CVA tenderness Back/Spine normal ROM Extremity normal to inspection and full ROM Skin no rashes or lesions noted Neuro oriented x3, CN's II-XII intact bilaterally and moves all extremities Sensorium / Orientation: awake, alert and oriented to person Motor Exam: clonus absent Deep Tendon Reflexes: Rt Patellar (L4): 2+ and Lt Patellar (L4): 2+ Assessment & Plan Assessment/Plan (1) deliv NOS-unsp: (2) Body mass index (BMI) of 40.1 to 44.9 in adult: (3) Arrest of descent, delivered, current hospitalization: PLAN: 1) Routine postoperative and instructions 2) Hgb stable 10.4, asymptomatic 3) Vitals stable 4) Pain management 5) Planning D/C home tomorrow
[2020-07-04] MEDS: Loratadine 10 MG Tablet PO (09:07)
[2020-07-04] MEDS: Senna/Docusate Sodium 1 Tablet PO (09:07)
[2020-07-04] MEDS: Naproxen 250 MG Tablet 500 MG PO ×3 (09:07→23:43)
--- NOTE | 2020-07-04 15:00 | CASEMGMT ---
Social Work Assessment Labor and Delivery Unit Patient Address: [address] [place] [address] , [place] [id number] Phone number: [phone] Date of Referral: 07.03.2020 Time of Referral: 800 Referred By: Dr. Khushbu Tay Date of Intervention: 07.04.2020 Reason for Referral: maternal history of THC in ; use of Crystal meth in 04/2019 History obtained from: Medical records and mother of baby (MOB) Ilsa Florian Household composition: MOB reports to live with her mother and step father. The father of baby (FOB) Bradley Whalen is living with a friend. Home situation is reported as safe and adequate. Plan to get a place with the FOB in the near future. Patient's parent/guardian status: MOB is a 34 year old single female, involved with with the FOB who is age 37. Denies any domestic violence or abuse issues in this relationship. First child for MOB and the 5th for the FOB. The FOB has a 20 year old in [place], a 4 and an 18 year old in [place], and then an 8 year old in [place]. [place] baby is to be named Hank Whalen (had also considered Jim Whalen). Medical History: Per record, MOB is G7, P0 to 1 after delivering baby boy. History of 2 SAB and 4 IAB. MOB was a transfer of care to [place] area at around 13 weeks, in December 2019. STEVE had reportedly been living out of state prior to this initiation of care in [place]. delivered weighing 7 pounds 6 ounces. Apgars 8 and 9 at 1 and 5 minutes of life respectively. Educational Status: MOB had high school education. No issues with reading, writing, or learning comprehension. Financial Status: MOB is not currently working. History of working at a [employer]. FOAndrew was working in Cannabis sales/growing/extracting when living in [place]. Supplies: MOB reports to have all needed supplies including pack-n-play, car seat, bottles, clothing, diapers, wipes, and car seat. MOB is bottle feeding but reports may breast feed. Childcare/Caregiver(s): MOB will be primary caregiver. Transportation: No issues. Has a regional company hazmat tanker driver's license and use either the car of FOAndrew or MOB's mom. Programs/Agencies Involved: [employer] for Medicaid and food. Active with WIC. Declines referrals to [facility] or [facility] [employer], but accepted information. [employer] for help with housing program. Children Services/Legal Issues: None reported. Behavioral Health Issues: Mental Health History: MOB has history of anxiety. Denies any issues or concerns regarding suicidal ideation, intent, or attempts. No counseling. Substance Use History: MOB endorses use of marijuana during with last use about 3 weeks ago around 36-37 weeks gestation. MOB endorses use of methamphetamines in April 2019, denies use during . Denies other illicit drug use. Family History: MOB's family not discusses. The FOB with history of anxiety. Drug Screens: Maternal drug screen positive on 01.06.2020 and then at admission was negative on 07.02.2020. Baby's urine is negative and meconium is pending. Family/Social Stressors: Move from [place] back to [place] during . No other identified stressors. Support Systems: Reports to have support from family, FOB, sister, a brother. Depression/Shaken Baby/Safe Sleeping: Discussed and information provided on all topics. ASSESSMENT: Met with the MOB in room. Introduced to self and social work role. MOB reports to have all needed supplies for the baby, and to have adequate support at home going. Denies concern with current emotional health. Discussed risk factors for depression and anxiety. Encouraged self care and seeking out help and support should symptoms arise and becoming distressing. Encouraged abstinence of THC. MOB denies current usage. Discussed recommendation of not using while breast feeding. Educated to need to call children services due to substance exposed . Answered questions. NO voiced concerns regarding mother/child interactions or bonding. Safe Plan of Care for related to substance use: Abstain from marijuana use. No use in the house if decides to use again. PLAN: MOB and baby will discharge home when ready. Community resource lists given as well as a packet on mood and anxiety disorders. Plan to call [facility] Children services for substance exposed . No other services requested or indicated. -ANDERSON Engel, HELIO *Information documented in this assessment generated with [employer]*
--- NOTE | 2020-07-04 15:30 | CASEMGMT ---
Social Work Called [facility] children services and spoke with Roxana in the intake department. [phone], extension [phone]. Referral due to substance exposed infant in utero. Reported positive drug screen in December and endorsement of last use of marijuana about 3 weeks ago. Brief maternal and infant histories provided. No other services requested or indicated, other than monitoring for meconium drug screen results. -PRECIOUS Engel, ADMINISTRATIVE SUPPORT SPECIALIST
[2020-07-04 16:05] VITALS: BP 120/62; PULSE 97; RESP 16; TEMP 36.6; O2SAT 99
[2020-07-04 20:54] VITALS: BP 125/71; PULSE 95; RESP 16; TEMP 36.3
--- NOTE | 2020-07-05 | NURSING ---
pt states to this RN that scares daddy off. pt reports that fob came and was freaked out that baby was screaming and concerned with mob that she is not feeding the baby enough or that something is wrong with him. this RN offered encouragement and reassurance to mob that infant is feeding appropriately and pt is doing well caring for .
[2020-07-05 02:54] VITALS: BP 108/54; PULSE 85; RESP 18; TEMP 36.4
[2020-07-05] MEDS: Acetaminophen 500 MG Tablet 1000 MG PO ×2 (02:57→09:02)
[2020-07-05] MEDS: Enoxaparin 40 MG/0.4 ML Syringe SC (06:21)
[2020-07-05] MEDS: Senna/Docusate Sodium 1 Tablet PO (07:41)
[2020-07-05] MEDS: Naproxen 250 MG Tablet 500 MG PO (07:42)
[2020-07-05 07:46] VITALS: BP 108/67; PULSE 84; RESP 16; TEMP 36.3; O2SAT 98
--- NOTE | 2020-07-05 08:47 | PCM.PN.OB ---
Subjective Subjective patient seen at bedside, doing well. Patient reports good pain control. lochia mild. Objective Data Objective Data Vital Signs: Vital Signs Temp Pulse Resp BP Pulse Ox 97.3 F L 84 16 108/67 98 07/05/20 07:46 07/05/20 07:46 07/05/20 07:46 07/05/20 07:46 07/05/20 07:46 Oxygen Delivery Method Room Air Weight: 106.413 kg Body Mass Index (BMI) 41.5 Intake & Output: Intake and Output for Last 24 Hours 07/03/20 07/04/20 07/05/20 23:59 23:59 23:59 Intake Total 2164.24 / 2164.24 Output Total 3700 / 3700 Balance -1535.76 / -1535.76 Lab / Micro Data Result Diagrams: 07/04/20 05:00 Micro: Microbiology 07/02/20 07:35 Interface Orders SARS-CoV-2 Antigen (Rapid) - Final Assessment & Plan (1) deliv NOS-unsp: (2) Single live : PLAN: POD# 2 , Doing well Routine care pain mgmt monitor VS ambulation dc home
--- NOTE | 2020-07-05 08:48 | DCINST_ITS ---
Discharge Instructions Diet Discharge Diet: No restrictions Activity Discharge Activity: May not drive while taking narcotic pain medications. and May Shower May resume sexual activity in: 6-8 weeks Lifting Restrictions: 25 Dressing / Incision Call your doctor if your incision/area has: Continuous Slow Oozing, Sudden Increased Bleeding, Increased Pain/ Swelling, Increased Redness, Foul Smelling Discharge and Swelling at the incision site Call your doctor if you observe: Fever of 101 or Higher, Inability to urinate, Using more than one pad per hour and Uncontrolled pain Additional Dressing/Incision Instructions:: remove dressing at 7 days post op- if it becomes saturated prior to that time you may remove it. Let soap and water run over incision sites and dab dry. keep incision clean and dry. Follow Up Care Please Follow Up With: Alana Qureshi MD When: 1-2 weeks post of incision check and again at 6 weeks post . [phone] Test Results: Test results from this visit will be discussed in further detail at your follow-up appointment, if applicable. Discharge Plan Admission Admit Date/Time: 07/02/20 07:05 Attending Provider: Khushbu Tay Primary Care Provider: Yun Gayle NP Instructions Forms: Information Discharge Orders/Prescriptions Prescriptions: New naproxen 250 mg Tablet 500 mg PO Q8H Qty: 60 RF: 0 acetaminophen 500 mg Tablet 1,000 mg PO Q6H Qty: 30 RF: 0 oxycodone 5 mg tablet 5 - 10 mg PO Q6H PRN PRN (Reason: Pain Score 4-10) 7 Days Qty: 15 RF: 0 simethicone [Mi-Acid Gas Relief(simethicon)] 80 mg Tablet,Chewable 80 mg PO PCHS PRN (Reason: Indigestion/stomach pain) Qty: 30 RF: 0 Continued albuterol sulfate 108.000 HFA aerosol inhaler 2 inhaler inhalation PRN PRN (Reason: Wheezing) RF: 0 prenat.vits,samuel,vaf-ehzi-ufuzt Tablet 1 tab PO DAILY RF: 0 loratadine [Claritin] 10 mg Tablet 10 mg PO DAILY RF: 0 Referrals / Follow Up: Yun Gayle NP, ELECTRICAL INSTRUMENT REPAIRER-C [Primary Care Provider] - Disposition Disposition (needs filled in before D/C Order can be placed): Home, self care
--- NOTE | 2020-07-05 08:57 | DS.PCM_ITS ---
Discharge Summary Date of Admission: 07/02/20 Date of Discharge: 07/05/20 Summary: Patient was admitted to [facility] for labor induction on July 02, 2020. Patient underwent a primary low transverse section performed by Dr. Khushbu Tay for arrest of descent. Had an uncomplicated postoperative course and was discharged home on postoperative day #2 July 05, 2020. Meaningful Use Info Meaningful Use Diagnoses (Choose all that apply): None applicable Discharge Plan Admission Admit Date/Time: 07/02/20 07:05 Attending Provider: Khushbu Tay Primary Care Provider: Yun Gayle NP Instructions Forms: Information Discharge Orders/Prescriptions Prescriptions: New naproxen 250 mg Tablet 500 mg PO Q8H Qty: 60 RF: 0 acetaminophen 500 mg Tablet 1,000 mg PO Q6H Qty: 30 RF: 0 oxycodone 5 mg tablet 5 - 10 mg PO Q6H PRN PRN (Reason: Pain Score 4-10) 7 Days Qty: 15 RF: 0 simethicone [Mi-Acid Gas Relief(simethicon)] 80 mg Tablet,Chewable 80 mg PO PCHS PRN (Reason: Indigestion/stomach pain) Qty: 30 RF: 0 Continued albuterol sulfate 108.000 HFA aerosol inhaler 2 inhaler inhalation PRN PRN (Reason: Wheezing) RF: 0 prenat.vits,samuel,kzj-mges-glqta Tablet 1 tab PO DAILY RF: 0 loratadine [Claritin] 10 mg Tablet 10 mg PO DAILY RF: 0 Referrals / Follow Up: Yun Gayle NP, PHONE MANAGER-C [Primary Care Provider] - Disposition Disposition (needs filled in before D/C Order can be placed): Home, self care
[2020-07-05 11:00] VITALS: PULSE 82; RESP 16
--- NOTE | 2020-07-27 16:51 | CASEMGMT ---
Social Work Labor and Delivery Meconium drug screen results are back and positive for THC. Reported to Roxana at [facility]. No further needs requested or indicated. -PRECIOUS Engel, REGIONAL PROGRAM MANAGER
== END 2020-07-05 13:45 | disposition home or self-care (01) | DRG 540 ==
PROVIDERS: Admitting Provider Obstetrics & Gynecology; PCP Nurse Practitioner Family; Visit Provider Obstetrics & Gynecology
DX: O99.214 Obesity complicating childbirth (principal); E66.9 Obesity, unspecified; O62.1 Secondary uterine inertia; O99.324 Drug use complicating childbirth; F12.10 Cannabis abuse, uncomplicated; Z20.822 Contact with and (suspected) exposure to COVID-19; O99.334 Smoking (tobacco) complicating childbirth; F17.200 Nicotine dependence, unspecified, uncomplicated; Z3A.39 39 weeks gestation of pregnancy; Z37.0 Single live birth
CPT/HCPCS: 59025; 59050; 80307; 85025; 85027; 85461; 86850; 86900; 86901; 87426; 90384; 99218; J7120; A4216; G0378; J2405; J2790

== ENCOUNTER 2021-04-13 14:22 | Outpatient (CLI) | payer MEDICAID, SELFPAY ==
[2021-04-13 18:59] LABS: AST(SGOT) 15 U/L (15-37); Alanine Aminotransfer ALT/SGPT 41 U/L (13-56); Albumin, Serum 3.7 g/dL (3.2-5.0); Alkaline Phosphatase 100 U/L (45-117); Bilirubin, Direct 0.08 mg/dL (0.00-0.30); Globulin 3.7 g/dL (2.2-4.2); Protein, Total 7.4 g/dL (6.4-8.2)
[2021-04-14 08:59] LABS: Hepatitis B Surface Antibody Non-Reactive; Hepatitis B Surface Antigen Non-Reactive (Nonreactive); Hepatitis C Antibody Non-Reactive (Nonreactive)
[2021-04-16 19:07] LABS: QNTFERON TB Mitogen Value > 10.00 IU/mL (.); QNTFERON TB Nil Value 0.02 IU/mL (.); QNTFERON TB1+ Ag Value 0.04 IU/mL (.); QNTFERON TB2+ Ag Value 0.03 IU/mL (.)
[2021-04-17 13:32] LABS: Hepatitis B Core AB IgM Negative (Negative); QNTIFERON TB Positive Criteria Negative (Negative)
== END 2021-04-13 23:59 | disposition home or self-care (01) ==
LOC: MTLAB 14:23
PROVIDERS: PCP Nurse Practitioner Family; Referring Provider Physician Assistant; Visit Provider Physician Assistant
DX: L40.0 Psoriasis vulgaris (principal); L44.8 Other specified papulosquamous disorders; M12.9 Arthropathy, unspecified; Z79.899 Other long term (current) drug therapy
CPT/HCPCS: 36415; 80076; 86480; 86705; 86706; 86803; 87340

== ENCOUNTER 2021-11-12 10:57 | Emergency (ER) | payer MEDICAID, SELFPAY ==
[2021-11-12 10:58] VITALS: BP 154/63; PULSE 119; RESP 17; TEMP 35.8; O2SAT 94; BMI 34.7
--- NOTE | 2021-11-12 11:18 | EX.ED.VIS.UR ---
HPI HPI - URI History of Present Illness Chief Complaint: Cough Detail of Chief Complaint: Cough and sore throat x2 days Informant: patient Narrative Narrative: Patient presents to the emergency department with a sore throat and cough that started 2 days ago. Patient states that she was seen in urgent care a month ago and treated with amoxicillin for sore throat and she thinks that she got better and was doing well until 2 days ago. Patient also states that she had her son in the emergency department yesterday he was diagnosed with croup and started on antibiotics and steroids. Patient denies any fevers. Cough is nonproductive. Patient coughs to the point she has dry heaves at times. She has had the COVID-vaccine. ROS ROS ED Review of Systems ROS Unobtainable: other Constitutional Constitutional ED: Reports lethargy; Denies chills, fever(s), sweats or weight loss Eyes Eyes: Denies blurry vision, change in vision or diplopia ENT ENT ED: Reports rhinorrhea and sore throat Cardiovascular Cardiovascular: Denies chest pain, orthopnea or racing heartbeat Respiratory/Chest Respiratory/Chest: Reports cough; Denies dyspnea, dyspnea on exertion, orthopnea or sputum Gastrointestinal Gastrointestinal: Denies abdominal pain, diarrhea, nausea or vomiting Genitourinary Genitourinary ED: Denies dysuria, hematuria or urinary frequency Musculoskeletal Musculoskeletal: Denies arthralgias, back pain, myalgias or neck pain Integumentary Denies abscess, Abrasions or rash Neurologic Neurologic: Denies headache(s) or weakness Psychiatric Psychiatric: Denies anxiety, depression or suicidal thoughts Endocrine Endocrinology: Denies polydipsia, polyphagia or polyuria Hematologic/Lymphatic Hematologic/Lymphatic: Denies easy bleeding, easy bruising or lymphadenopathy Allergic/Immunologic Allergic/Immunologic ED: Denies mouth swelling, tongue swelling or urticaria [facility] Medical History (Updated 11/12/21 @ 12:[address] Kristel Davey, ) Anxiety Autoimmune disease Home Medications benzonatate 200 mg capsule 200 mg PO TID PRN cough #20 caps 11/12/21 [Rx Last Taken Unknown] Allergy/AdvReac Type Severity Reaction Status Date / Time No Known Allergies Allergy Verified 11/12/21 10:57 Social History Smoking Status: Light Smoker (<10/day) EXAM Physical Exam Const Vital Signs: 11/12/21 10:58 11/12/21 11:27 Temperature 96.5 F L Temperature Source Temporal Pulse Rate 119 H Respiratory Rate 17 Respiratory Effort Normal Non-Labored Respiratory Depth Normal Respiratory Pattern Normal Blood Pressure 154/63 H Blood Pressure Mean 93 Pulse Ox 94 Oxygen Delivery Method Room Air Room Air Positive well nourished and well developed General Appearance ED: well developed and NAD HEENT Reports TM's clear and moist mucous membranes HEENT Narrative: No significant pharyngeal erythema noted. Uvula midline without trismus. No exudates noted. She does have some mild anterior cervical lymphadenopathy that is nontender. normocephalic and atraumatic; Negative for trauma or tenderness Tympanic Membrane ED: Yes TM's clear Eyes PERRL and EOMs intact bilaterally General Eye ED: Negative for pale conjunctiva or scleral icterus Neck no lymphadenopathy, supple and no JVD General: Negative for tenderness Chest Wall inspection of chest normal and palpation of chest normal Chest: Negative for tenderness Resp normal respiratory effort and clear to auscultation bilaterally Effort and Inspection: Negative for respiratory distress or pain with movement Auscultation: Negative for rhonchi, wheezes or diminished lung sounds Cardio regular rate, regular rhythm, S1 normal heart sound, S2 normal heart sound and no murmurs Peripheral Pulses: pulses 2+ throughout GI normal to inspection, nondistended, normoactive bowel sounds, soft to palpation, non-tender, non-distended and no masses Back/Spine no CVA tenderness and no thoracic nor lumbar tenderness Extremity normal to inspection General Extremety ED: Negative for edema General Extremity: Negative for edema Neuro oriented x3, CN's II-XII intact bilaterally, no sensory deficits noted and gait normal Sensorium / Orientation: awake, alert, oriented to person, oriented to place and oriented to time Motor Exam: strength 5/5 throughout and strength abnormal Psych mental status grossly normal Skin no rashes or lesions noted and no wounds MDM MDM MDM Narrative Medical decision making narrative: Had a negative strep screen as well as negative COVID rapid test and negative influenza rapid. At this point I suspect likely viral URI. I do not feel antibiotics are indicated. Patient in agreement. I will offer her Tessalon Perles for her cough. Patient advised to use ibuprofen for body aches and discomfort. Patient to follow-up with primary care physician 5 to 7 days. She is advised to return if increasing shortness of breath or condition should worsen anyway. Lab Data Attestation: I reviewed the patient's lab results. Discharge Plan Triage Chief Complaint: Cough ED Provider: Kristel Davey Dx/Rx/DC Orders Clinical Impression: Viral URI Instructions: ED URI, Viral, No Abx (Adult) Prescriptions: New benzonatate 200 mg capsule 200 mg PO TID PRN (Reason: cough) Qty: 20 0RF Primary Care Provider: Care Physician,No Primary Referrals: Ian Bartholomew, [Non-Staff] - 5-7 Days [facility] Doctor,Out of [Non-Staff] - Disposition Disposition: Home, Self Care
[2021-11-12 12:20] VITALS: RESP 16
== END 2021-11-12 12:31 | disposition home or self-care (01) ==
PROVIDERS: Emergency Provider Emergency Medicine; Visit Provider Emergency Medicine
DX: J06.9 Acute upper respiratory infection, unspecified (principal); R11.10 Vomiting, unspecified; Z20.822 Contact with and (suspected) exposure to COVID-19; F41.9 Anxiety disorder, unspecified; F17.200 Nicotine dependence, unspecified, uncomplicated
CPT/HCPCS: 87428; 87880; 99282

== ENCOUNTER 2021-11-14 12:01 | Emergency (ER) | payer MEDICAID, SELFPAY ==
[2021-11-14 12:02] VITALS: BP 118/78; PULSE 132; RESP 25; TEMP 36.2; O2SAT 95; BMI 33.5
--- NOTE | 2021-11-14 12:46 | RAD_ITS ---
STUDY: X-RAY CHEST REASON FOR EXAM: Female, 35 years old. Cough TECHNIQUE: Single AP portable view of the chest. COMPARISON: None. FINDINGS: The lungs are clear and expanded. There is no demonstrated pleural abnormality. Normal size heart. Normal mediastinum and manjeet. Normal visualized pulmonary arteries. Normal visualized aortic arch and descending thoracic aorta. Normal visualized thoracic spine. Normal visualized ribs, clavicles, and shoulders. There is no demonstrated abnormality of the visualized soft tissue structures of the upper abdomen. RAD/Chest 1 View (Portable) IMPRESSION: Normal x-ray examination of the chest. Electronically Signed: Vinay Sanchez MD at 13:20 EDT ,
--- NOTE | 2021-11-14 12:47 | EX.ED.DYSGE1 ---
HPI History of Present Illness Chief Complaint: Nausea/Vomiting Informant: patient Onset/Context/Timing Onset: Days Context: Gradual Onset Timing: Continuous Current Severity: Mild Maximum Severity: Mild Narrative Narrative: 35-year-old female past medical history of psoriasis and psoriatic arthritis. States her son was diagnosed with croup around last Saturday. Since that time she has had cough and nausea vomiting. Today started diarrhea. She was placed on medication for the cough but states she cannot keep anything down the last several days. Denies any dysuria. No severe abdominal pain. No recent hospitalization. Also states she is recently developed a rash. It does not itch. Prior similar symptoms: No Recent Illness/Hospitalization: No PFSH PFSH Medical History Anxiety Autoimmune disease Home Medications benzonatate 200 mg capsule 200 mg PO TID PRN cough #20 caps 11/12/21 [Rx Last Taken Unknown] Allergy/AdvReac Type Severity Reaction Status Date / Time No Known Allergies Allergy Verified 11/14/21 12:02 Social History Smoking Status: Light Smoker (<10/day) ROS ROS ED ROS Narrative Nausea, vomiting, diarrhea, cough, rash. Review of Systems ROS Unobtainable: Denies due to encephalopathy Constitutional Constitutional ED: Reports chills; Denies fever(s) Eyes Eyes: Denies blurry vision ENT ENT ED: Denies ear pain Cardiovascular Cardiovascular: Denies chest pain Respiratory/Chest Respiratory/Chest: Reports cough; Denies dyspnea Gastrointestinal Gastrointestinal: Reports diarrhea, nausea and vomiting; Denies abdominal pain, constipation or melena Genitourinary Genitourinary ED: Denies dysuria or hematuria Musculoskeletal Musculoskeletal: Denies arthralgias Integumentary Denies abscess Neurologic Neurologic: Denies headache(s) Psychiatric Psychiatric: Denies anxiety Endocrine Endocrinology: Denies cold intolerance Hematologic/Lymphatic Hematologic/Lymphatic: Reports none Allergic/Immunologic Allergic/Immunologic ED: Denies mouth swelling or tongue swelling EXAM Physical Exam Narrative Exam Narrative: 35-year-old female no acute distress. Vital signs are stable she is tachycardic. Clinically looks mildly dehydrated. H EENT exam dry mucous membranes. Posterior pharynx unremarkable. Neck nontender no lymphadenopathy. No meningismus. Lungs clear to auscultation bilaterally. Heart tachycardic rate about 125 no murmur. Chest were nontender. Abdomen soft nontender. Normal bowel sounds no peritoneal signs. Soft. Nondistended. Moving all 4 extremities. Skin very light rash consistent with a viral exanthem. It blanches. No petechiae or purpura. No sloughing of skin or vesicles. No pustules. On the upper shoulders back and chest. Extremities are nontender without edema. Neurologically she is awake and alert. She does not look toxic. Or septic. Const Vital Signs: 11/14/21 12:02 Temperature 97.2 F L Temperature Source Temporal Pulse Rate 132 H Respiratory Rate 25 H Blood Pressure 118/78 Blood Pressure Mean 91 Pulse Ox 95 Oxygen Delivery Method Room Air Positive well nourished, well developed and obese; Negative for cachectic, contractures or unkempt General Appearance ED: well developed and NAD; Negative for unkempt, cachectic, contractures, cyanotic, diaphoretic or pallor Nutritional Appearance: obese; Negative for cachectic HEENT Reports dry mucous membranes; Denies moist mucous membranes Negative for trauma or tenderness Mouth ED: Yes dry mucous membranes Mouth: dry mucous membranes Eyes PERRL and EOMs intact bilaterally General Eye ED: Negative for pale conjunctiva or scleral icterus Neck no lymphadenopathy, supple and no JVD General: Negative for tenderness Lymph Lymphatic: Negative for other Chest Wall inspection of chest normal and palpation of chest normal Chest: Negative for other Resp normal respiratory effort and clear to auscultation bilaterally Effort and Inspection: Negative for retractions Auscultation: Negative for rales, rhonchi or wheezes Cardio regular rhythm, S1 normal heart sound, S2 normal heart sound and no murmurs; Negative for regular rate Rate: tachycardic Rhythm: Negative for abnormal rhythm GI normal to inspection, nondistended, normoactive bowel sounds, non-tender, non-distended and no masses Inspection: Negative for abdominal distention Auscultation: normoactive bowel sounds Palpation: soft; Negative for tender, guarding, splenomegaly, mass or rebound tenderness present Back/Spine no CVA tenderness General Back: Negative for CVA tenderness Cervical Spine: Negative for cervical spine tenderness Thoracic Spine / Upper Back: Negative for thoracic spinal tenderness Lumbar Spine / Lower Back: Negative for lumbar spinal tenderness Extremity normal to inspection General Extremety ED: Negative for edema or tenderness General Extremity: Negative for edema Neuro oriented x3 and CN's II-XII intact bilaterally Sensorium / Orientation: alert; Negative for orientation impaired, lethargic or stuporous Motor Exam: strength 5/5 throughout Psych mental status grossly normal Appearance: Negative for unkempt Attitude: No agitated Mood & Affect: Negative for depressed, anxious or tearful Skin No no rashes or lesions noted and no wounds General Skin Exam: Negative for jaundice or pallor Lesions: No lesion noted Rashes: rashes noted Trauma: Negative for abrasion Wounds: Negative for wounds noted MDM MDM MDM Narrative Medical decision making narrative: 35-year-old with nausea vomiting and cough appears to all be from a viral syndrome. She will be treated with IV fluids IV Zofran and p.o. fluid challenge. Chest x-ray will be obtained. Repeat exam patient doing well. Nausea improved with IV Zofran. Able to hold down p.o. fluids. Went over her chest x-ray which was negative. She will be discharged home with a prescription for Zofran. Follow-up if not improving return if worse. Radiography Chest X-Ray - ED: 1 View, Heart, Lungs, Mediastinum, Bony Structures, No Acute Disease and Chronic Changes Diagnostic Testing: Clinical Impression(s) from Imaging Studies Chest X-Ray 11/14/21 12:46 IMPRESSION: Normal x-ray examination of the chest. Electronically Signed: Vinay Sanchez MD at 13:20 EDT Reading Location ID and State: [address] [place] [address] , Service support , Chest x-ray, portable, single view interpreted myself shows no acute abnormality. Normal cardiac silhouette. Normal mediastinum. Normal lungs. Discharge Plan Triage Chief Complaint: Nausea/Vomiting ED Provider: Nolan Patel Dx/Rx/DC Orders Prescriptions: No Action benzonatate 200 mg capsule 200 mg PO TID PRN (Reason: cough) Qty: 20 0RF Primary Care Provider: Care Physician,No Primary Referrals: Care Physician,No Primary [Primary Care Provider] -
[2021-11-14] MEDS: 0.9% Normal Saline 1,000 ML 1000 ML IV (13:01)
[2021-11-14] MEDS: Ondansetron 4 MG/2 ML Vial IV (13:01)
== END 2021-11-14 14:01 | disposition home or self-care (01) ==
PROVIDERS: Emergency Provider Emergency Medicine; Visit Provider Emergency Medicine
DX: R11.2 Nausea with vomiting, unspecified (principal); R19.7 Diarrhea, unspecified; B34.9 Viral infection, unspecified; F17.200 Nicotine dependence, unspecified, uncomplicated; E66.9 Obesity, unspecified
CPT/HCPCS: 71045; 96361; 96374; 99283; J7030; A4216; J2405

== ENCOUNTER → 2022-04-17 | Outpatient (CLI) | payer MEDICAID, SELFPAY ==
[2022-04-19 13:08] LABS: QNTFERON TB Mitogen Value > 10.00 IU/mL (.); QNTFERON TB Nil Value 0.03 IU/mL (.); QNTFERON TB1+ Ag Value 0.03 IU/mL (.); QNTFERON TB2+ Ag Value 0.03 IU/mL (.)
[2022-04-19 18:42] LABS: QNTIFERON TB Positive Criteria Negative (Negative)
== END | disposition home or self-care (01) ==
PROVIDERS: Referring Provider Dermatology; Visit Provider Dermatology
DX: L40.0 Psoriasis vulgaris (principal); Z79.899 Other long term (current) drug therapy; M12.9 Arthropathy, unspecified
CPT/HCPCS: 36415; 86480

== ENCOUNTER → 2023-04-23 | Outpatient (CLI) | payer MEDICAID, SELFPAY ==
[2023-04-26 10:09] LABS: QNTFERON TB Mitogen Value > 10.00 IU/mL (.); QNTFERON TB Nil Value 0 IU/mL (.); QNTFERON TB1+ Ag Value 0 IU/mL (.); QNTFERON TB2+ Ag Value 0 IU/mL (.); QNTIFERON TB Positive Criteria Negative (Negative)
== END | disposition home or self-care (01) ==
LOC: MTLAB 10:10
PROVIDERS: PCP Internal Medicine; Referring Provider Dermatology; Visit Provider Dermatology
DX: L40.0 Psoriasis vulgaris (principal); M12.9 Arthropathy, unspecified; Z79.899 Other long term (current) drug therapy
CPT/HCPCS: 36415; 86480

== ENCOUNTER → 2024-06-16 | Outpatient (CLI) | payer SELFPAY ==
[2024-06-18 20:08] LABS: QNTFERON TB Mitogen Value > 10.00 IU/mL (.); QNTFERON TB Nil Value 0.03 IU/mL (.); QNTFERON TB1+ Ag Value 0.03 IU/mL (.); QNTFERON TB2+ Ag Value 0.01 IU/mL (.); QNTIFERON TB Positive Criteria Negative (Negative)
== END | disposition home or self-care (01) ==
PROVIDERS: PCP Internal Medicine; Referring Provider Dermatology; Visit Provider Dermatology
DX: L40.0 Psoriasis vulgaris (principal); Z79.899 Other long term (current) drug therapy
CPT/HCPCS: 36415; 86480